=== PATIENT | female | born 2000 | race Caucasian/White ===

== ENCOUNTER 2022-05-30 14:08 | Emergency (ER) | payer OTHER ==
[2022-05-30] MEDS ORDERED: ONDANSETRON ODT4 MG PO (18:29)
== END 2022-05-30 18:49 | disposition home or self-care (01) ==
LOC: FER 14:08
DX: S93.402A Sprain of unspecified ligament of left ankle, initial encounter (principal); S09.90XA Unspecified injury of head, initial encounter; V80.010A Animal-rider injured by fall from or being thrown from horse in noncollision accident, initial encounter; Y92.009 Unspecified place in unspecified non-institutional (private) residence as the place of occurrence of the external cause; Z28.311 Partially vaccinated for COVID-19
CPT/HCPCS: 70450; 72125; 73610